=== PATIENT | female | born 1980 | race Caucasian/White ===

== ENCOUNTER 2023-08-20 00:18 | Emergency (ER) | payer MEDICAID ==
[~2023-08-20] VITALS: Ht 154.9 cm; Wt 95.3 kg
[2023-08-20 00:21] VITALS: BP 148/99; PULSE 70; RESP 17; TEMP 97.9; O2SAT 97
== END 2023-08-20 00:58 ==
LOC: MED 00:18
DX: S09.90XA Unspecified injury of head, initial encounter (principal); Z02.89 Encounter for other administrative examinations; Z90.49 Acquired absence of other specified parts of digestive tract; Z98.890 Other specified postprocedural states; W22.8XXA Striking against or struck by other objects, initial encounter; Y92.89 Other specified places as the place of occurrence of the external cause; Y93.89 Activity, other specified; Y99.8 Other external cause status
CPT/HCPCS: 99283